=== PATIENT | male | born 1955 | race African-American/Black ===

== ENCOUNTER 2019-06-11 10:53 | Emergency (ER) | payer OTHER ==
[~2019-06-11] VITALS: Ht 170.2 cm; Wt 64.4 kg
[2019-06-11] MEDS ORDERED: TOPROL XL25 M1 PO (11:29)
== END 2019-06-11 21:51 | disposition home or self-care (01) ==
LOC: ER 10:53 → CPU-OBS 11:05 → ER 11:05
DX: R07.89 Other chest pain (principal)
CPT/HCPCS: G0378; G0379; 93005

== ENCOUNTER → 2020-06-02 | Outpatient (CLI) | payer OTHER ==
[~2020-06-02] MED LIST: TOPROL XL25 M1 PO
== END | disposition home or self-care (01) ==
LOC: OFIC 805 10:45
PROVIDERS: ATTEND Otolaryngology
DX: D17.0 Benign lipomatous neoplasm of skin and subcutaneous tissue of head, face and neck (principal); D11.0 Benign neoplasm of parotid gland

== ENCOUNTER 2020-06-16 10:28 | Outpatient (CLI) | payer OTHER | END 2020-06-16 10:29 | disposition home or self-care (01) | LOC: SONOGRAMA 10:28 | PROVIDERS: ATTEND Pathology Anatomic Pathology & Clinical Pathology | DX: D37.030 Neoplasm of uncertain behavior of the parotid salivary glands (principal) ==

== ENCOUNTER → 2020-07-09 | Outpatient (CLI) | payer OTHER | END | disposition home or self-care (01) | LOC: OFIC 805 09:15 | PROVIDERS: ATTEND Otolaryngology | DX: D11.0 Benign neoplasm of parotid gland (principal); D17.0 Benign lipomatous neoplasm of skin and subcutaneous tissue of head, face and neck ==

== ENCOUNTER 2024-11-08 07:25 | Outpatient (CLI) | payer OTHER | END 2024-11-08 07:28 | disposition home or self-care (01) | LOC: SONOGRAMA 07:25 | PROVIDERS: ATTEND Pathology Anatomic Pathology | DX: D34 Benign neoplasm of thyroid gland (principal); E07.89 Other specified disorders of thyroid; E04.2 Nontoxic multinodular goiter; N64.4 Mastodynia ==

== ENCOUNTER 2024-11-08 07:36 | Outpatient (CLI) | payer OTHER | END 2024-11-08 07:46 | disposition home or self-care (01) | LOC: MRI 07:36 | PROVIDERS: ATTEND Internal Medicine | DX: G46.4 Cerebellar stroke syndrome (principal) | CPT/HCPCS: 70552 ==